=== PATIENT | male | born 1965 | race Two or more races ===

== ENCOUNTER 2021-09-09 14:00 | Outpatient (RCR) | payer MEDICAID, SELFPAY ==
--- NOTE | 2021-08-10 15:01 | MHC.PT.EP ---
[facility] [place] [facility] [place] [facility] [place] Office [address] Gladis Carty [address] [phone] F: [phone] F: [phone] F: [phone] F: [phone] Physical Therapy Plan of Care Date of Evaluation: Date of Surgery: n/a Diagnosis: B knee pain Assessment: Patient is a 56 year old male presenting to PT with complaints of pain in his B knees L>R. Pt reports onset of pain began 35 years ago initially due to insidious onset. He presents today with impairments in pain, hip strength, muscle length, and balance. Pt's current occupation is [employer] but currently is unable the last 2 weeks, with baseline physical activities including ambulation, stair negotiation, work, and squatting. Pt expresses prison goal of reducing pain and improving activity levels, and is motivated to work towards this in PT. Clinical presentation today is most consistent with signs and sx associated with chronic B knee pain with possible arthritis and pt will benefit from skilled PT to address the following problems and impairments noted upon evaluation: pain, hip strength, muscle length, and balance. These problems limit the patient with the following functional activities: ambulation, stair negotiation, work, and squatting. The prescribed treatment plan of care is medically necessary. Co-morbidities of anxiety, hx L knee surgery, and depression were identified and taken into considerations of plan of care. Pt was educated on HEP, role of PT, prognosis, POC. Frequency and Duration: The patient will be seen 2x week for 4 weeks Short Term Goals: Pt will demonstrate 5/5 MMT without reports of pain in 2 weeks. Pt will demonstrate improved quad muscle length as evidence by negative prone quad test B in 2 weeks. Pt will demonstrate improved balance as evidence by SLS x 20 sec B with min to no sway in 2 weeks for improved SL stabiltiy. Pt will demonstrate improved hip muscle strength by 1/3 MMT in 2 weeks for improved lumbopelvic stability. [facility]cf Goals: Pt will demonstrate ability to ambulate x 15 min with pain <3/10 in 4 weeks for improved access to the community. Pt will demonstrate ability to negotiate stairs with step over step pattern and min to no pain in 4 weeks for improved access to his home. Pt will demonstrate ability to squat with min to no pain in 4 weeks to improve ability to picker tender items off the floor. Treatment Plan: Modalities to reduce pain, spasms and effusion. Manual therapy to restore motion and function. Therapeutic exercise to improve strength and flexibility. Neuromuscular re-education for posture and balance. Therapeutic activities to return to functional activities of daily living. Electronically signed by: Francheska Marie, PT, DPT, ATC Please sign and return to therapist. Thank you for your referral.
--- NOTE | 2021-09-09 15:04 | MHC.PT.DC ---
[facility] [place] Office [place] Office [place] Office [address] Gladis Carty [address] [phone] F: [phone] F: [phone] F: [phone] F: [phone] Physical Therapy Discharge Report Diagnosis: B knee pain Date of Surgery: n/a Date of Evaluation: 08/10/21 Date of Discharge: 09/09/21 Treatments to Date: 9 Cancellations to Date: 0 No Shows to Date: 0 Discharge Status: Achieved Goals Improved Function Discharge Summary: Pt has made good improvements in strength, balance, and pain since beginning skilled PT. This has allowed him to meet the majority of his functional goals. He continues to have low level pain which increases only on stairs. He also continues to have impaired quad muscle length. Emphasized importance of continuing with HEP at home to maintain all gains since the start of PT as well as make further gains and pt verbalized good understanding. At this time max benefits of PT have been provided and skilled PT is no longer indicated at this time. Pt is in agreement with d/c today. Electronically signed by: Francheska Marie, PT, DPT, ATC Please sign and return to therapist. Thank you for your referral.
== END 2021-09-09 15:04 | disposition home or self-care (01) ==
LOC: HO.PT 14:00
PROVIDERS: PCP Nurse Practitioner; Visit Provider Nurse Practitioner
DX: M25.562 Pain in left knee (principal)
CPT/HCPCS: 97110; 97112; 97140; 97161

== ENCOUNTER → 2022-07-26 09:50 | Outpatient (REF) | payer MEDICAID, SELFPAY ==
--- NOTE | 2022-07-26 09:54 | CA_ITS ---
Transthoracic Echocardiogram Patient (Last, First, Middle): Derian Tian, Gender: Male Date of : 1965 Age: 56 Procedure Date: 07/26/2022 Procedure Type: Transthoracic Echocardiogram Location: OP Height: 175. cm Weight: 80. kg BSA: 1.96 m2 Heart Rate: 57 bpm BP: 105 / 70 mmHg Egg Processing Supervisor: RAMA Referring MD: Lesley Ordonez Symptoms: ORTHOPNEA R06.01 Study Quality: Good ECG Rhythm: Bradycardia Conclusions: - The left ventricular systolic function is mildly decreased. The calculated ejection fraction is 51% by biplane method. - Moderately increased right ventricular cavity size. - No obvious valvular pathology seen on this study. Findings Left Ventricle Normal left ventricular cavity size. There is normal left ventricular wall thickness. The left ventricular systolic function is mildly decreased. The calculated ejection fraction is 51% by biplane method. There is mild global hypokinesis. Diastolic function is normal for age. LV peak GLS -17.4%, but endocardial tracking suboptimal. Right Ventricle Moderately increased right ventricular cavity size. There is normal right ventricular systolic function. Atria Both atria are normal in size. Aortic Valve There is a normal trileaflet aortic valve. There is no aortic valve stenosis. There is no aortic valve regurgitation. Mitral Valve The mitral valve appears normal. There is no mitral valve regurgitation. There is no mitral valve stenosis. Pulmonic Valve The pulmonic valve is likely normal. Tricuspid Valve Normal tricuspid valve structure. There is trace tricuspid valve regurgitation. There is no evidence of pulmonary hypertension. Great Vessels The asc aorta is normal in size. Venous The inferior vena cava is normal in size and collapses greater than 50% with inspiration. Pericardium/Pleural There is no evidence of pericardial effusion. Prior Study Comparison No prior study available for comparison. Recommendations, Care & Conclusions No obvious valvular pathology seen on this study. Measurements 2D Linear Measurements IVSd: 0.95 0.6-0.9/0.6-1.0 cm LVIDd: 5.01 3.9-5.3/4.2-5.9 cm LVIDd Index: 2.56 2.4-3.2/2.2-3.1 cm/m2 LVIDs: 3.66 2.0-3.6 cm LVPWd: 0.89 0.7-1.1 cm LA Diam: 3.50 2.7-3.8/3.0-4.0 cm LAIDs Index: 1.79 1.5-2.3 cm/m2 LV Mass: 203.93 67-162/88-224 g LV Mass Index: 104.05 43-95/49-115 g/m2 LVOT Diam: 2.00 3.0+(-)1.3 cm 2D Systolic Function EF 4C: 50.70 >55% EF 2C: 49.70 >55% EF BiP: 51.10 >55% Mitral Valve MV Pk E: 0.63 MV PK A: 0.70 MV Decel Time: 262.00 E/A: 0.90 E'Lateral: 9.57 E'Medial: 9.25 E/E' Med: 6.80 E/E' Lat: 6.60 PHT: 77.00 MVA PHT: 2.86 Decel Sheridan: 2.40 Aortic Valve AoV Pk Jos: 1.39 AoV Mn Jos: 1.02 AoV VTI: 0.34 AoV Pk Grad: 8.00 Aov Mn Grad: 5.00 ERIN Cont.VTI: 2.32 LVOT LVOT Pk Jos: 1.09 LVOT Mn Jos: 0.77 LVOT VTI: 0.25 LVOT Pk Grad: 5.00 LVOT Mn Grad: 3.00 LVOT Diam: 2.00 LVOT Area: 3.14 Diastolic Function MV Pk E: 0.63 MV Pk A: 0.70 E/A: 0.90 E'Medial: 9.25 E/E' Med: 6.80 E' Laterial: 9.57 E/E' Lat: 6.60 Right Ventricle TAPSE (mm): 24.30 TVS' Jos: 9.25 Tricuspid Valve RA Press: 3.00 Great Vessels Aorta Sinus of Valsalva: 3.40 2.0-3.5 cm Ao Asc: 2.90 2.1-3.4 cm Pulmonary Valve PV Pk Jos: 1.03 Peak PV Grad: 4.00 Updated in Other Vendor System with Status of Final Eliot Gtz MD electronically signed on 07/26/2022 11:08:15 AM with status of Final
== END ==
LOC: HO.CARD 09:50
PROVIDERS: PCP Nurse Practitioner; Visit Provider Nurse Practitioner
DX: R06.01 Orthopnea (principal)
CPT/HCPCS: 93306; 93356

== ENCOUNTER → 2022-08-31 08:45 | Outpatient (BNVA) | payer MEDICAID, SELFPAY | PROVIDERS: PCP Nurse Practitioner; Visit Provider Internal Medicine Cardiovascular Disease | DX: R06.02 Shortness of breath (principal); I51.7 Cardiomegaly | CPT/HCPCS: 93005; 99202 ==

== ENCOUNTER → 2022-09-06 10:42 | Outpatient (REF) | payer MEDICAID, SELFPAY | LOC: HO.SL 10:42 | PROVIDERS: PCP Nurse Practitioner; Visit Provider Internal Medicine Cardiovascular Disease | DX: Z13.89 Encounter for screening for other disorder (principal) ==

== ENCOUNTER → 2022-09-12 08:52 | Outpatient (REF) | payer MEDICAID, SELFPAY ==
--- NOTE | 2022-09-12 08:55 | CA_ITS ---
Acquisition Time: 2022-09-12 09:05:07 Total Exercise Time: 00:10:44 Test Indications: R06.02 SHORTNESS OF BREATH Medications: see H Protocol: MALIK Max HR: 126 BPM 76% of Pred: 164 BPM Max BP: 156/080 mmHG Max Work Load: 12.9 METS Exercise stress test with exercise 10 min 44 sec of Malik protocol, acheiving 76% MPHR, 12.9 METs, with fatigue and request to stop ( reports bad knees and unable to jog), without anginal symptoms, without arrythmia, with normotensive response and blunted chronotropic response, without EKG changes at achieved workload. Ability to assess for ischemia limited by inability to achieve 85% MPHR. Test reviewed with Dr Mascorro Referred By: Luiz Mascorro Overread By: TOM ELIZABETH
== END ==
LOC: HO.CARD 08:52
PROVIDERS: PCP Nurse Practitioner; Visit Provider Internal Medicine Cardiovascular Disease
DX: R06.02 Shortness of breath (principal)
CPT/HCPCS: 93017

== ENCOUNTER 2022-10-21 15:29 | Outpatient (REF) | payer MEDICAID, SELFPAY ==
[2022-10-21 15:41] LABS: MANUAL DIFF FLAG NO
[2022-10-21 16:00] LABS: Basophils Percent Auto 0.5 % (0-2); Eosinophils Absolute Auto 0.2 X10*3/uL (0.0-0.4); Eosinophils Percent Auto 2.3 % (0-4); Hematocrit 40.6 % (42.0-52.0); Hemoglobin 13.5 g/dl (14.0-18.0); Imm Gran Abs Auto 0.02 X10*3/uL (0.00-0.03); Imm Gran Pct Auto 0.3 % (0.0-0.4); Lymphocytes Absolute Auto 2.3 X10*3/uL (1.2-4.9); Lymphocytes Percent Auto 30.5 % (20-40); Mean Corpuscular HGB Conc 33.3 g/dl (31.0-36.0); Mean Corpuscular Hemoglobin 29.9 pg (27.0-33.0); Mean Corpuscular Volume 89.8 fL (80.0-98.0); Mean Platelet Volume 8.7 fL (9.4-12.4); Monocytes Absolute Auto 0.7 X10*3/uL (0.1-1.2); Monocytes Percent Auto 8.6 % (2-11); Neutrophils Absolute Auto 4.4 x10*3/uL (2.0-8.3); Neutrophils Percent Auto 57.8 % (45-73); Platelet Count 287 X10*3/uL (160-400); Red Blood Count 4.52 X10*6/uL (4.60-5.80); Red Cell Distribution Width 13.2 % (11.0-16.0); White Blood Count 7.5 X10*3/uL (4.8-10.8)
[2022-10-21 16:25] LABS: Alanine Aminotransferase 15 U/L (0-40); Albumin Level 4.3 g/dL (3.5-5.0); Alkaline Phosphatase 93 U/L (39-117); Amylase 92 U/L (28-100); Anion Gap 10 (12-20); Aspartate Amino Transferase 16 U/L (5-37); Bilirubin Total 0.5 mg/dL (0.0-1.0); Blood Urea Nitrogen 18 mg/dL (9-16); Calcium 9.6 mg/dL (8.4-10.2); Carbon Dioxide 25 mmol/L (22-29); Chloride 102 mmol/L (96-108); Estimated Glomerular Filt Rate > 60; Glucose Random 98 mg/dL (60-115); Lactate Dehydrogenase 139 U/L (118-273); Lipase 41 U/L (8-78); Potassium 4.1 mmol/L (3.3-5.1); Sodium 133 mmol/L (135-145); Total Protein 6.8 g/dL (6.5-8.0)
[2022-10-25 15:23] LABS: H Pylori Breath Test Negative (Negative)
== END 2022-10-21 15:30 | disposition home or self-care (01) ==
LOC: HO.LAB 15:29
PROVIDERS: PCP Registered Nurse; Visit Provider Nurse Practitioner
DX: K85.90 Acute pancreatitis without necrosis or infection, unspecified (principal); K59.00 Constipation, unspecified; R11.0 Nausea; R10.10 Upper abdominal pain, unspecified
CPT/HCPCS: 36415; 80053; 82150; 83013; 83615; 83690; 85025; 99202

== ENCOUNTER → 2022-12-08 13:24 | Outpatient (BNVA) | payer MEDICAID, SELFPAY | PROVIDERS: PCP Registered Nurse; Visit Provider Urology | DX: N32.3 Diverticulum of bladder (principal); N40.1 Benign prostatic hyperplasia with lower urinary tract symptoms; N13.8 Other obstructive and reflux uropathy; Z12.5 Encounter for screening for malignant neoplasm of prostate | CPT/HCPCS: 51798; 99202 ==

== ENCOUNTER 2022-12-09 13:18 | Outpatient (REF) | payer MEDICAID, SELFPAY ==
[2022-12-09 17:06] LABS: Estimated Average Glucose 105 mg/dL; Hemoglobin A1c % 5.3 %
[2022-12-09 17:22] LABS: Amylase 87 U/L (28-100)
[2022-12-09 17:36] LABS: Alanine Aminotransferase 31 U/L (0-40); Albumin Level 4.1 g/dL (3.5-5.0); Alkaline Phosphatase 91 U/L (39-117); Anion Gap 9 (12-20); Aspartate Amino Transferase 21 U/L (5-37); Bilirubin Total 0.4 mg/dL (0.0-1.0); Blood Urea Nitrogen 16 mg/dL (9-16); Carbon Dioxide 30 mmol/L (22-29); Chloride 103 mmol/L (96-108); Cholesterol 154 mg/dL; Estimated Glomerular Filt Rate > 60; Glucose Random 82 mg/dL (60-115); HDL Cholesterol 29 mg/dL; LDL Cholesterol Calculated 88 mg/dl; Lipase 42 U/L (8-78); Potassium 4.4 mmol/L (3.3-5.1); Sodium 138 mmol/L (135-145); Total Protein 6.5 g/dL (6.5-8.0); Triglycerides 186 mg/dL
[2022-12-09 17:51] LABS: PSA,Total (Free>4and<10) 3.36 ng/mL (0.00-4.00)
[2022-12-10 09:04] LABS: HBc Num1 0.08 S/CO (0.00-0.79); HBsAGNum1 0.38 S/CO (0.00-0.99); Hepatitis B Core Antibody Nonreactive (Nonreactive); Hepatitis B Surface Antigen Negative (Negative); ~HepC Num1 0.06 S/CO (0.00-0.79); ~Hepatitis C Antibody Nonreactive (Nonreactive)
[2022-12-10 09:05] LABS: Hepatitis A Antibody IgG REACTIVE (Nonreactive); ~Hepatitis A Antibody IgG 11.12 S/CO (0.00-0.99)
[2022-12-10 09:39] LABS: HBS Num1 2.86 mIU/mL (0-7.99); ~Hepatitis B Surface Antibody NONREACTIVE (Nonreactive)
[2022-12-22 11:44] LABS: Phosphatidylethanol 16:0-18:1 None Detected
== END 2022-12-09 13:19 | disposition home or self-care (01) ==
LOC: HO.LAB 13:18
PROVIDERS: Absent Provider Urology; PCP Registered Nurse; Visit Provider Internal Medicine
DX: K85.90 Acute pancreatitis without necrosis or infection, unspecified (principal); R19.7 Diarrhea, unspecified; R10.10 Upper abdominal pain, unspecified; F10.11 Alcohol abuse, in remission; F19.11 Other psychoactive substance abuse, in remission; N40.1 Benign prostatic hyperplasia with lower urinary tract symptoms; Z86.19 Personal history of other infectious and parasitic diseases; Z12.5 Encounter for screening for malignant neoplasm of prostate
CPT/HCPCS: 36415; 80053; 80061; 80321; 82150; 83036; 83690; 84153; 86704; 86706; 86708; 86803; 87340; 99212

== ENCOUNTER 2022-12-10 11:58 | Outpatient (REF) | payer MEDICAID, SELFPAY | END 2022-12-10 11:59 | disposition home or self-care (01) | LOC: HO.LNP 11:58 | PROVIDERS: Visit Provider Internal Medicine | DX: Z13.89 Encounter for screening for other disorder (principal) | CPT/HCPCS: 82656; 82705; 87338 ==

== ENCOUNTER 2022-12-14 12:36 | Outpatient (REF) | payer MEDICAID, SELFPAY ==
[2022-12-18 15:53] LABS: Fecal Fat Qualitative Abnormal (Normal)
[2022-12-22 16:34] LABS: Pancreatic Elastase-1 315 mcg/g
== END 2022-12-14 12:37 | disposition home or self-care (01) ==
LOC: HO.LNP 12:36
PROVIDERS: Visit Provider Internal Medicine
DX: R19.7 Diarrhea, unspecified (principal); Z86.19 Personal history of other infectious and parasitic diseases
CPT/HCPCS: 82656; 82705; 87338

== ENCOUNTER 2022-12-27 10:57 | Outpatient (REF) | payer MEDICAID, SELFPAY ==
--- NOTE | ~2022-12-27 | MR_ITS ---
EXAMINATION: MR ABDOMEN WITHOUT AND WITH CONTRAST CLINICAL INFORMATION: Acute pancreatitis COMPARISON: Previous abdominal ultrasound and CT of the abdomen and pelvis August 2022 TECHNIQUE: MR abdomen was performed without and with use of 10 mL intravenous Gadavist gadolinium contrast. Postcontrast images are performed in multiphase dynamic sequences. Imaging was performed in 3 planes. MRCP sequences were also performed. FINDINGS: LUNG BASES: The visualized lung bases are unremarkable. LIVER, GALLBLADDER, AND BILIARY TREE: The liver is normal in size and contour. There is mild signal loss in the liver on out of phase sequences suggestive of fatty infiltration. There is a small 4 mm cyst in the peripheral anterior segment of the right lobe of the liver. No other focal liver lesion. The gallbladder is contracted. No gallstones are seen. Intrahepatic extrahepatic bile ducts are normal in caliber. The common bile duct measures 5 mm. No common bile duct stone is seen. PANCREAS: There are clustered small cysts seen in the uncinate process of the head of the pancreas. The largest measures 7 x 8 mm. There are several smaller isolated cysts measuring 2 to 3 mm in the body and tail the pancreas. These may represent dilated pancreatic duct radicles. The main pancreatic duct does not appear dilated measuring 3 mm. The pancreas is otherwise normal in signal. The pancreas enhances normally. No pancreatic mass is seen. The peripancreatic fat is normal. SPLEEN: Small cyst in the inferior spleen. The spleen is otherwise unremarkable. ADRENAL GLANDS: There is a 1.8 cm left adrenal lesion. This loses signal on out of phase sequences suggestive of a benign lipid rich adenoma. Right adrenal gland is normal. KIDNEYS AND URETERS: Small left renal cysts. No imaging follow-up needed. Kidneys are otherwise normal. There is a large cystic structure in the pelvis. This is seen on coronal and sagittal T2 sequences only. This likely represents a distended bladder and large right-sided bladder diverticulum. GASTROINTESTINAL TRACT: No bowel obstruction. No ascites or fluid collection. ABDOMINAL WALL: No significant hernia is appreciated. LYMPH NODES: No lymphadenopathy. VASCULAR: Unremarkable. The splenic vein and portal vein are patent. OSSEOUS STRUCTURES: Marrow signal normal. Degenerative changes of the spine. MR/MR abdomen wo/w con IMPRESSION: Small clustered cysts in the uncinate process of the head of the pancreas largest measuring 7 x 8 mm. There are additional isolated small cysts in the body and tail the pancreas largest measuring 2 to 3 mm. These may represent dilated pancreatic duct radicles. Pancreas is otherwise normal. The main pancreatic duct is otherwise normal. Mild fatty infiltration of the liver. Small liver, spleen and left renal cyst. Probable distended gallbladder and large right-sided bladder diverticulum.
== END 2022-12-27 10:58 | disposition home or self-care (01) ==
LOC: HO.MRI 10:57
PROVIDERS: Visit Provider Internal Medicine
DX: K85.90 Acute pancreatitis without necrosis or infection, unspecified (principal)
CPT/HCPCS: 74183; A9585

== ENCOUNTER → 2023-01-04 14:56 | Outpatient (BNVA) | payer MEDICAID, SELFPAY | PROVIDERS: PCP Registered Nurse; Visit Provider Internal Medicine | DX: R10.10 Upper abdominal pain, unspecified (principal); R19.7 Diarrhea, unspecified; K85.90 Acute pancreatitis without necrosis or infection, unspecified; K86.2 Cyst of pancreas; K62.5 Hemorrhage of anus and rectum; D64.9 Anemia, unspecified; F10.11 Alcohol abuse, in remission | CPT/HCPCS: 99212 ==

== ENCOUNTER 2023-02-02 14:17 | Day surgery (SDC) | payer MEDICAID, SELFPAY ==
[2023-01-27 15:26] VITALS: BMI 28.4
--- NOTE | 2023-02-01 14:39 | HO.ANESPROP2 ---
Documented by User: Sapna Paige NP 02/08/23 13:17 HPI - Anesthesia Eval Consult details Narrative: 57yo M for Upper Endoscopy and Colonoscopy [facility] Active Problems Active Problems: All Active Problems (Updated 01/27/23 @ 15:18 by Ashlie Hutchins, HUBERT) Cardiomegaly (Acute) History of alcohol abuse (Acute) Orthopnea (Acute) Recurrent acute pancreatitis (Acute) Depression with anxiety (Acute) Bilateral knee pain (Acute) Constipation (Acute) Nausea (Acute) Upper abdominal pain (Acute) Acquired bladder diverticulum (Acute) Voiding dysfunction (Acute) BPH loc w urin obs/LUTS (Acute) Screening PSA (prostate specific antigen) (Acute) Recurrent acute pancreatitis (Acute) History of Helicobacter pylori infection (Acute) Diarrhea (Acute) Colon cancer screening (Acute) 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) Pancreatic cyst (Acute) Rectal bleeding (Acute) Anemia (Acute) Past Medical History Medical History Anemia BPH (benign prostatic hyperplasia) Depression with anxiety Pancreatitis Substance abuse in remission Family History Family History Maternal Grandmother Diabetes Hypertension Surgical History Surgical History H/O skin graft History of esophagogastroduodenoscopy (EGD) History of reconstruction of anterior cruciate ligament tear Social History Social History Alcohol intake: never Patient Tobacco Use Status: Former Tobacco user Meds Allergies Allergy/AdvReac Type Severity Reaction Status Date / Time seafood AdvReac Severe Swelling Verified 02/03/23 14:20 Home Medications Medication Instructions Recorded Confirmed Last Taken Type epinephrine 0.3 mg/0.3 mL IM ONCE PRN anaphylaxis 08/31/22 12/08/22 Unknown History injection, auto-injector hydroxyzine HCl 50 mg tablet 100 mg PO BEDTIME insomnia 08/31/22 12/08/22 Unknown History cholecalciferol (vitamin D3) 50 50 mcg PO 01/04/23 Unknown History mcg (2,000 unit) capsule Exam Exam Date and Time: February 01, 2023 1439 Height,Weight and Vital Signs: Height 5 ft 10 in Weight 89.811 kg Pertinent Lab Results Pertinent Lab Results: Laboratory Tests 10/21/22 12/09/22 15:39 16:20 WBC 7.5 Hgb 13.5 L Hct 40.6 L Plt Count 287 Sodium 138 Potassium 4.4 Chloride 103 Carbon Dioxide 30 H BUN 16 Creatinine 1.16 Narrative Narrative: ECHO 07/2022 Conclusions: - The left ventricular systolic function is mildly decreased.? ? The calculated ejection fraction is 51% by biplane method. ? ? ? - Moderately increased right ventricular cavity size.? - No obvious valvular pathology seen on this study.? ? ? EKG 08/2022 normal sinus rhythm with Q-waves in high lateral leads ? Stress 08/2022 Protocol: MORGAN ? Max HR: 126 BPM? 76% of? Pred: 164 BPM Max BP: 156/080 mmHG Max Work Load: 12.9 METS ? Exercise stress test with exercise 10 min 44 sec of Morgan protocol, acheiving ?76% MPHR, 12.9 METs, with fatigue and request to stop ( reports bad knees and ?unable to jog), without anginal symptoms, without arrythmia, with normotensive ?response and blunted chronotropic response, without EKG changes at achieved ?workload. Ability to assess for ischemia limited by inability to achieve 85% ?MPHR. Test reviewed with Dr Mascorro Assessment and Plan Assessment Anesthesia Assessment: Chart Reviewed Documented by User: Godwin Kovacs MD 02/09/23 15:34 PMF Past Medical History Medical History Anemia BPH (benign prostatic hyperplasia) Depression with anxiety Pancreatitis Substance abuse in remission Family History Family History Maternal Grandmother Diabetes Hypertension Family history of problems with anesthesia: No Surgical History Surgical History H/O skin graft History of esophagogastroduodenoscopy (EGD) History of reconstruction of anterior cruciate ligament tear History of Problems with Anesthesia: No Social History Social History Alcohol intake: never Patient Tobacco Use Status: Former Tobacco user Meds Allergies Allergy/AdvReac Type Severity Reaction Status Date / Time seafood AdvReac Severe Swelling Verified 02/03/23 14:20 Home Medications Medication Instructions Recorded Confirmed Last Taken Type epinephrine 0.3 mg/0.3 mL IM ONCE PRN anaphylaxis 08/31/22 12/08/22 Unknown History injection, auto-injector hydroxyzine HCl 50 mg tablet 100 mg PO BEDTIME insomnia 08/31/22 12/08/22 Unknown History cholecalciferol (vitamin D3) 50 50 mcg PO 01/04/23 Unknown History mcg (2,000 unit) capsule Exam Airway Mallampati Class: II TM Dist: >3cm Neck ROM: Full Loose/Missing/Broken Teeth: Yes Assessment and Plan Assessment Anesthesia Assessment: Anesthesia Plan Discussed Final Anesthetic Review Family History of Problems with Anesthesia: No History of Problems with Anesthesia: No NPO: Yes ASA Class: III Final Preanesthetic Review: No Changes in Pt Med Stat, Meds/Allgs Chart Reviewed, Consent Obtained/Reviewed and Anes Risks/Benef Reviewed Patient Risk: Intermediate Procedure Risk: Low Anesthetic Plan Anesthetic Plan: MAC: Disposition: Standard PACU
[2023-02-02 14:23] VITALS: BMI 25.9
[2023-02-02 14:29] VITALS: BP 113/68; PULSE 72; RESP 16; TEMP 36.6; O2SAT 95
[2023-02-02] MEDS: Lactated Ringers 1,000 ML 100 ML IVCONT (14:39)
--- NOTE | 2023-02-02 14:39 | MHC.SHP ---
Pre-Procedural Eval Section A Date of Service: 02/02/23 The History & Physical has been completed within 30 days and I have reviewed it.: Yes Section B Chief Complaint: acute pancreastitis,diarrhea,screening,pain Allergies: Allergies Allergy/AdvReac Type Severity Reaction Status Date / Time seafood AdvReac Severe Swelling Verified 01/04/23 15:02 Plan Diagnosis/Plan: Unchanged I have reviewed the history and physical and performed a pertinent physical examination on my patient. No changes have occurred unless specified. Time Spent With Patient Time: Total time managing care of this patient today ____ minutes.
--- NOTE | 2023-02-02 14:54 | PC.NURSE ---
report given to nehal koch
[2023-02-02 14:56] LABS: Amphetamine Screen Urine Not Detected (Not Detect); Barbiturates, Urine Not Detected (Not Detect); Benzodiazepines Screen Urine Not Detected (Not Detect); Cannabinoid Screen Urine POSITIVE (Not Detect); Cocaine Screen Urine Not Detected (Not Detect); Fentanyl, urine Not Detected (Not Detect); Opiate Screen Urine Not Detected (Not Detect); Phencyclidine Screen Urine Not Detected (Not Detect)
--- NOTE | 2023-02-02 15:59 | P.OP_ITS ---
Operative Note Operative Note Date of Service: 02/02/23 Narrative: Procedure:?Esophagogastroduodenoscopy and Colonoscopy Indication:?Anemia, diarrhea, rectal bleeding Endoscopist:?Myrna Wright MD Anesthesia Provider:?Dr Godwin Kovacs Anesthesia type:?MAC Instrument:?Olympus GIF-H190, PCF-H190L EGD Procedure:?? The procedure, indications, preparation and potential complications were reviewed with the patient, who indicated understanding and gave written informed consent to proceed. A physical exam was performed. The endoscope was introduced through the mouth, and advanced to the second part of the duodenum. The mucosa was carefully examined on slow withdrawal of the endoscope. The patient tolerated the procedure well. There were no immediate complications.? ? EGD Findings:? * Esophagus:? The Z line was at 42 cm. Small erosion/ulceration noted at the GEJ. Cold forceps biopsies were taken from the lower esophagus. * Stomach:?Normal mucosa was noted in the stomach. Random cold forceps biopsies were taken to rule out H pylori. * Duodenum:? Erythema and small erosions were seen in the duodenal bulb. Cold forceps biopsies were taken from the duodenal bulb and 2nd portion of the duodenum to rule out celiac sprue. Colonoscopy Procedure:? The patient was then turned for the colonoscopy. A digital rectal exam was performed which was normal.? A distal attachment cap was affixed to the tip of t he scope and the colonoscope was then inserted through the anus and advanced through the colon to the cecum at 85 cm and terminal ileum. The appendiceal orifice and ileocecal valve was identified.? Mucosa was carefully examined under high definition white light as the instrument was slowly withdrawn in a retrograde panoramic fashion.? Ascending colon was intubated twice.? Retroflexion was performed in rectum. The procedure was not difficult. There were no immediate obvious complications. The quality of the prep was BBPS: 2+3+3 = adequate Withdrawal time 12 minutes. Limitations: No limitations Colonoscopy Findings: Mucosa:? Normal colon and terminal ileum mucosa. Random cold forceps biopsies were taken from right and left side of the colon to rule out microscopic colitis. Protruding lesions: * Two sessile polyp of size 2-3 mm were seen in the sigmoid colon. Cold forceps polypectomy was performed. The polyps were completely removed and retrieved. * One sessile polyp of size 4 mm was seen in the rectum. Cold forceps polypectomy was performed. The polyp was completely removed and retrieved. * Large internal hemorrhoids with stigmata of recent bleeding. Impression:? * Grade B esophagitis (biopsy) * Normal stomach (biopsy) * Duodenitis (biopsy) * Normal colon mucosa (biopsy) * Total of 3 polyps removed from the sigmoid colon and rectum as above. * Internal hemorrhoids Recommendations: * Await path results.? * Start PPI therapy for esophagitis and duodenitis. * If H pylori is positive, patient will be prescribed eradication therapy. * If biopsies confirm microscopic colitis, will review indication for budesonide. * Repeat colonoscopy in 3-5 years if all polyps are adenoma. Following was reviewed with the patient and relevant handouts were provided.
[2023-02-02 16:10] VITALS: BP 95/72; PULSE 62; RESP 12; TEMP 36.6; O2SAT 99
[2023-02-02 16:25] VITALS: BP 103/61; PULSE 56; RESP 12; O2SAT 96
[2023-02-02 16:40] VITALS: BP 107/65; PULSE 60; RESP 16; O2SAT 97
[2023-02-02 16:55] VITALS: BP 112/62; PULSE 61; RESP 16; TEMP 36.7; O2SAT 96
== END 2023-02-02 17:26 | disposition home or self-care (01) ==
PROVIDERS: Nurse Practitioner; PCP Registered Nurse; Visit Provider Internal Medicine
PROC: (CPT 45380; principal; 2023-02-02 13:20)
DX: K62.5 Hemorrhage of anus and rectum (principal); D64.9 Anemia, unspecified; R19.7 Diarrhea, unspecified; K63.5 Polyp of colon; K62.1 Rectal polyp; K64.8 Other hemorrhoids; K85.90 Acute pancreatitis without necrosis or infection, unspecified; K86.2 Cyst of pancreas; R10.10 Upper abdominal pain, unspecified; K29.80 Duodenitis without bleeding; K20.80 Other esophagitis without bleeding; N40.0 Benign prostatic hyperplasia without lower urinary tract symptoms; F41.8 Other specified anxiety disorders; F10.11 Alcohol abuse, in remission; Z79.899 Other long term (current) drug therapy
CPT/HCPCS: 45380; 43239; 80307; 88305; 88342; J2250

== ENCOUNTER → 2023-02-03 14:08 | Outpatient (BNVA) | payer MEDICAID, SELFPAY | PROVIDERS: PCP Registered Nurse; Visit Provider Internal Medicine | DX: K85.90 Acute pancreatitis without necrosis or infection, unspecified (principal); K86.2 Cyst of pancreas; K62.5 Hemorrhage of anus and rectum; K20.90 Esophagitis, unspecified without bleeding; K29.80 Duodenitis without bleeding; D64.9 Anemia, unspecified; F10.11 Alcohol abuse, in remission; R19.7 Diarrhea, unspecified; R10.10 Upper abdominal pain, unspecified | CPT/HCPCS: 99212 ==

== ENCOUNTER 2023-06-20 10:04 | Outpatient (REF) | payer MEDICAID, SELFPAY ==
[2023-06-20 11:50] LABS: Hematocrit 41.5 % (42.0-52.0); Hemoglobin 13.9 g/dl (14.0-18.0); Mean Corpuscular HGB Conc 33.5 g/dl (31.0-36.0); Mean Corpuscular Hemoglobin 30.3 pg (27.0-33.0); Mean Corpuscular Volume 90.6 fL (80.0-98.0); Mean Platelet Volume 8.6 fL (9.4-12.4); Platelet Count 295 X10*3/uL (160-400); Red Blood Count 4.58 X10*6/uL (4.60-5.80); Red Cell Distribution Width 12.8 % (11.0-16.0); White Blood Count 5.6 X10*3/uL (4.8-10.8)
[2023-06-20 13:03] LABS: Iron 159 mcg/dL (45-160); Magnesium 2.1 mg/dL (1.6-2.6); Percent Iron Saturation 48 % (15-50); Total Iron Binding Capacity 332 mcg/dL (228-428); Unsaturated Iron Binding 173 ug/dL
[2023-06-20 13:11] LABS: Ferritin 44 ng/mL (20-250); Vitamin D 25-OH Total 51.6 ng/mL (>30)
[2023-06-20 13:17] LABS: Folate 6.9 ng/mL (> or = 4.0); Vitamin B12 357 pg/mL (200-900)
[2023-06-23 00:58] LABS: Zinc 72 mcg/dL (60-130)
[2023-06-23 02:12] LABS: Copper, serum 69 mcg/dL (70-175); Selenium, Serum 126 mcg/L (63-160)
== END 2023-06-20 10:05 | disposition home or self-care (01) ==
LOC: HO.LAB 10:04
PROVIDERS: PCP Registered Nurse; Visit Provider Internal Medicine
DX: R10.10 Upper abdominal pain, unspecified (principal); K85.90 Acute pancreatitis without necrosis or infection, unspecified; K86.2 Cyst of pancreas; R19.7 Diarrhea, unspecified; F10.11 Alcohol abuse, in remission; K62.5 Hemorrhage of anus and rectum; D64.9 Anemia, unspecified; K20.90 Esophagitis, unspecified without bleeding; K29.80 Duodenitis without bleeding
CPT/HCPCS: 36415; 82306; 82330; 82525; 82607; 82728; 82746; 83540; 83735; 84255; 84590; 84630; 85027; 85610; 99212

== ENCOUNTER 2023-06-20 10:04 | Outpatient (AMB) | payer MEDICAID, SELFPAY ==
[2023-06-20 10:19] VITALS: BP 125/80; PULSE 61; BMI 27.7
--- NOTE | 2023-06-20 10:19 | A.OFFVIS_ITS ---
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 12/09/22: History was obtained patient, who states that he had his 1st episode of acute pancreatitis in 2014, followed by 2nd episode 8 months later. At that time, this was attributed to heavy alcohol use. Was drinking 6-7 drinks every day x years. He has since then quit, and has not had recurrence of pancreatitis until just recently in August 2022. Was admitted to [facility] for almost [address] scan showing pancreatitis scanned in chart. Unclear etiology, thinks it was may be from eating too many eggs. Has not had alcohol for 8 years. Has gallbladder in Situ, but does not recall being told he had stones or sludge. Does not smoke tobacco, does smoke marijuana. 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 No family history of pancreatitis or pancreatic cancer. Currently, main complaint is postprandial abdominal pain and burning sensation with nausea, feeling of bloating and intermittent diarrhea. He states that his diarrhea is better since he started psyllium fiber, but continues to have postprandial abdominal discomfort with nausea. Describes abdominal discomfort as burning pain in the center of his abdomen that lasts at least a few hours. He is not on any PPI. Does have prior history of H pylori infection, and recalls getting antibiotics, but is not sure whether he had a repeat breath test. Does not take any NSAIDs. Currently not on any PPI. 01/04/23: Main complain of abdominal discomfort and bloating is unchanged. This is mostly postprandial as mentioned before. Was also recent testing and MRI discussed with the patient. Although, no signs of pancreatic atrophy or calcification noted on MRI, fecal fat is elevated and patient may have some degree of pancreatic insufficiency. In addition, he also reports rectal bleeding, which is specially worse in the past 2 days. Notices blood on wiping. No pain on passing bowel movements. Patient reports he has never had a colonoscopy done. Labs also show anemia. 02/02/23 EGD/colo: Impression:? * Grade B esophagitis (biopsy) * Normal stomach (biopsy) * Duodenitis (biopsy) * Normal colon mucosa (biopsy) * Total of 3 polyps removed from the sigmoid colon and rectum as above. * Internal hemorrhoids Path: A.? Duodenum, biopsy:? Duodenal mucosa with preserved villi and no specific change. B.? Stomach, random, biopsy:? Gastric antral mucosa with mild reactive changes and minimal chronic inactive gastritis, and gastric body mucosa with focal minimal inactive gastritis; negative for H pylori, intestinal metaplasia and dysplasia.? C.? Esophagus, lower, biopsy:? Squamocolumnar mucosa with hyperplastic changes and mild chronic inflammation; negative for intestinal metaplasia and dysplasia. D.? Colon, right, biopsy:? Colonic mucosa with lymphoid aggregates and no specific change; no evidence of microscopic colitis. E.? Colon, left, biopsy:? Colonic mucosa with lymphoid aggregates and no specific change; no evidence of microscopic colitis.? F.? Colon, sigmoid, polyps:? Hyperplastic polyps, two. G.? Colon, rectal polyp:? Hyperplastic polyp.? 02/03/23: Reports improvement in abdominal pain, nausea and vomiting with the Creon. Reports has to take 1 extra capsule than what is currently being prescribed for full effect. Diarrhea is better 2, thinks fiber supplementation help more than the crown in improving the diarrhea. It has also helped with the rectal bleeding and hemorrhoids. Was not able to use the hydrocortisone for rectal cream. Findings from EGD and colonoscopy reviewed with the patient. Path pending. Suspect rectal bleeding and anemia most likely secondary to the large internal hemorrhoids which did have stigmata of recent bleeding on the exam as well. 06/20/23: Returned from [place]. Reports good energy levels - biking 8 miles on weekends. Abd pain completely resolved with starting Creon but since increasing the dose recently, reports increased bloating and distention. Diarrhea is decreased in frequency as well. Rectal bleeding has resolved now that he is not going as frequently. Labs pending from January visit, and reminded to get those done today to review anemia as well as any nutrient deficiency due to chronic panc - if any. [facility] Medical History Anemia BPH (benign prostatic hyperplasia) Depression with anxiety Pancreatitis Substance abuse in remission Surgical History H/O skin graft History of esophagogastroduodenoscopy (EGD) History of reconstruction of anterior cruciate ligament tear Family History Maternal Grandmother Diabetes Hypertension Social History Alcohol intake: never Patient Tobacco Use Status: Former Tobacco user Review of Systems Const All systems reviewed & are unremarkable except as noted in HPI and below Physical Exam Vital Signs: Last Vital Signs Pulse 61 06/20/23 10:19 BP 125/80 06/20/23 10:19 BMI result Body Mass Index 27.7 Gen appear: No acute distress, well nourished HEENT: no icterus, no cervical lymphadenopathy Chest: No overt resp distress CVS: S1/S2, regular Abd: soft, nontender, nondistended, small 2 cm subdermal nodule in RUQ Psych: Stable affect, answering questions appropriately Neuro: A/Ox3 noted to move all extremities spontaneously Ext: no peripheral edema Assessment & Plan Assessment & Plan (1) Upper abdominal pain: Code(s): R10.10 - Upper abdominal pain, unspecified (2) Recurrent acute pancreatitis: Code(s): K85.90 - Acute pancreatitis without necrosis or infection, unspecified (3) Pancreatic cyst: Code(s): K86.2 - Cyst of pancreas (4) Diarrhea: Code(s): R19.7 - Diarrhea, unspecified (5) History of alcohol abuse: Code(s): F10.11 - Alcohol abuse, in remission Plan: Overall doing well. Post prandial abd pain completely resolved with addition of Creon. Did review dosing and advised to reduce to 5 caps with meals and 3 caps with snacks to see if that helps with bloating and distention. Plan: -Creon 120,000 units (5 caps) to be taken with meals and 81836 units (3 caps) to be taken with snack -Reminder in place for repeat MRI next year to surveil the pancreatic cyst\ -since he has demonstrated some degree of pancreatic insufficiency, we will also check micronutrients including iron, folate, B12, vitamin-D, micronutrients. Also ties in with work up for his anemia see below. (6) Rectal bleeding: Code(s): K62.5 - Hemorrhage of anus and rectum (7) Anemia: Code(s): D64.9 - Anemia, unspecified Plan: REctal bleeding has resolved with improvement in diarrhea on PERT. Overdue for anemia monitoring as missed his lab work at last appt. Recommendations: - CBC, iron panel ordered - Cont fiber supplement - Sitz bath PRN - Avoid constipation and straining - Avoid wiping aggressively, can use water/bidet or wet wipe (8) Esophagitis: Code(s): K20.90 - Esophagitis, unspecified without bleeding (9) Duodenitis: Code(s): K29.80 - Duodenitis without bleeding Plan: As noted on upper endoscopy earlier this year. Was likely contributing to his anemia as well. -Decrease omeprazole to 20 mg once daily -Will likely need this indefinitely due to hx of erosive esophagitis and gastritis in absence of NSAID use and H pylori. Plan Follow-up in 3 month Orders: Orders Vitamin B12 and Folate Today K85.90 - Acute pancreatitis without necrosis or infection, unspecified Calcium, Ionized Today K85.90 - Acute pancreatitis without necrosis or infection, unspecified Copper, serum Today K85.90 - Acute pancreatitis without necrosis or infection, unspecified Ferritin Today K85.90 - Acute pancreatitis without necrosis or infection, unspecified IRON PROFILE Today K85.90 - Acute pancreatitis without necrosis or infection, unspecified Magnesium Today K85.90 - Acute pancreatitis without necrosis or infection, unspecified Selenium, Serum Today K85.90 - Acute pancreatitis without necrosis or infection, unspecified Vitamin A Today K85.90 - Acute pancreatitis without necrosis or infection, unsp ecified Vitamin D 25-OH Total Today K85.90 - Acute pancreatitis without necrosis or infection, unspecified Zinc Today K85.90 - Acute pancreatitis without necrosis or infection, unspecified Prothrombin Time INR Today K85.90 - Acute pancreatitis without necrosis or infection, unspecified Complete Blood Count no Diff Today K85.90 - Acute pancreatitis without necrosis or infection, unspecified Medications: Changed From [id number] 24,000-76,000 -120,000 unit (Creon) 3 capsule with meals and 2 capsule with snack orally; administer with meals and/or snacks 30 days 400 caps 1RF To [id number]-nuugwgw 24,000-76,000 -120,000 unit (Creon) 4-5 capsule with meals and 3 capsule with snack orally; administer with meals and/or snacks 30 days 570 caps 3RF From omeprazole 20 mg PO BID 90 days 180 caps 0RF To omeprazole 20 mg PO DAILY 90 days 90 caps 3RF Refilled omeprazole 20 mg PO DAILY 90 days 90 caps 3RF Coding Level of Care Code Est Pt Level 5 (34428) Diagnoses Upper abdominal pain R10.10 Recurrent acute pancreatitis K85.90 Pancreatic cyst K86.2 Diarrhea R19.7 History of alcohol abuse F10.11 Rectal bleeding K62.5 Anemia D64.9 Esophagitis K20.90 Duodenitis K29.80
== END 2023-06-20 10:51 | disposition home or self-care (01) ==
PROVIDERS: Visit Provider Internal Medicine
DX: K85.90 Acute pancreatitis without necrosis or infection, unspecified (principal); K86.2 Cyst of pancreas; R19.7 Diarrhea, unspecified; K62.5 Hemorrhage of anus and rectum; D64.9 Anemia, unspecified; K20.90 Esophagitis, unspecified without bleeding; K29.80 Duodenitis without bleeding
CPT/HCPCS: 99214

== ENCOUNTER 2023-10-03 11:05 | Outpatient (AMB) | payer MEDICAID, SELFPAY ==
--- NOTE | 2023-10-03 11:07 | MHC.OFFVIS ---
Intake Intake Visit Reasons: 3 month follow up Intake Note: Derian presents as a telehealth as a 3 month follow up. CC: Allergies seafood Adverse Reaction (Severe, Verified 10/03/23 11:07) Swelling HPI HPI Comments History of Present Illness Details This is a 57-year-old [place] gentleman with past medical history of recurrent acute pancreatitis, who is here for follow-up. 12/09/22: History was obtained patient, who states that he had his 1st episode of acute pancreatitis in 2014, followed by 2nd episode 8 months later. At that time, this was attributed to heavy alcohol use. Was drinking 6-7 drinks every day x years. He has since then quit, and has not had recurrence of pancreatitis until just recently in August 2022. Was admitted to [facility] for almost [address] scan showing pancreatitis scanned in chart. Unclear etiology, thinks it was may be from eating too many eggs. Has not had alcohol for 8 years. Has gallbladder in Situ, but does not recall being told he had stones or sludge. Does not smoke tobacco, does smoke marijuana. 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 No family history of pancreatitis or pancreatic cancer. Currently, main complaint is postprandial abdominal pain and burning sensation with nausea, feeling of bloating and intermittent diarrhea. He states that his diarrhea is better since he started psyllium fiber, but continues to have postprandial abdominal discomfort with nausea. Describes abdominal discomfort as burning pain in the center of his abdomen that lasts at least a few hours. He is not on any PPI. Does have prior history of H pylori infection, and recalls getting antibiotics, but is not sure whether he had a repeat breath test. Does not take any NSAIDs. Currently not on any PPI. 01/04/23: Main complain of abdominal discomfort and bloating is unchanged. This is mostly postprandial as mentioned before. Was also recent testing and MRI discussed with the patient. Although, no signs of pancreatic atrophy or calcification noted on MRI, fecal fat is elevated and patient may have some degree of pancreatic insufficiency. In addition, he also reports rectal bleeding, which is specially worse in the past 2 days. Notices blood on wiping. No pain on passing bowel movements. Patient reports he has never had a colonoscopy done. Labs also show anemia. 02/02/23 EGD/colo: Impression:? Grade B esophagitis (biopsy) Normal stomach (biopsy) Duodenitis (biopsy) Normal colon mucosa (biopsy) Total of 3 polyps removed from the sigmoid colon and rectum as above. Internal hemorrhoids Path: A.? Duodenum, biopsy:? Duodenal mucosa with preserved villi and no specific change. B.? Stomach, random, biopsy:? Gastric antral mucosa with mild reactive changes and minimal chronic inactive gastritis, and gastric body mucosa with focal minimal inactive gastritis; negative for H pylori, intestinal metaplasia and dysplasia.? C.? Esophagus, lower, biopsy:? Squamocolumnar mucosa with hyperplastic changes and mild chronic inflammation; negative for intestinal metaplasia and dysplasia. D.? Colon, right, biopsy:? Colonic mucosa with lymphoid aggregates and no specific change; no evidence of microscopic colitis. E.? Colon, left, biopsy:? Colonic mucosa with lymphoid aggregates and no specific change; no evidence of microscopic colitis.? F.? Colon, sigmoid, polyps:? Hyperplastic polyps, two. G.? Colon, rectal polyp:? Hyperplastic polyp.? 02/03/23: Reports improvement in abdominal pain, nausea and vomiting with the Creon. Reports has to take 1 extra capsule than what is currently being prescribed for full effect. Diarrhea is better 2, thinks fiber supplementation help more than the creon in improving the diarrhea. It has also helped with the rectal bleeding and hemorrhoids. Was not able to use the hydrocortisone for rectal cream. Findings from EGD and colonoscopy reviewed with the patient. Path pending. Suspect rectal bleeding and anemia most likely secondary to the large internal hemorrhoids which did have stigmata of recent bleeding on the exam as well. 06/20/23: Returned from [place]. Reports good energy levels - biking 8 miles on weekends. Abd pain completely resolved with starting Creon but since increasing the dose recently, reports increased bloating and distention. Diarrhea is decreased in frequency as well. Rectal bleeding has resolved now that he is not going as frequently. Labs pending from January visit, and reminded to get those done today to review anemia as well as any nutrient deficiency due to chronic panc - if any. 10/03/23: Here as a televisit due to URI. No acute gastrointestinal complaints. No abd pain, N,V. No diarrhea as long as he takes creon and fiber regularly. Rectal bleeding has also resolved. Labs reviewed from last visit. No clinically significant nutritional deficiencies noted. COUNTS INCLUDE 234 BEDS AT THE [facility] Medical History Pancreatitis Anemia Depression with anxiety BPH (benign prostatic hyperplasia) Substance abuse in remission Surgical History History of esophagogastroduodenoscopy (EGD) H/O skin graft History of reconstruction of anterior cruciate ligament tear Family History Maternal Grandmother Diabetes Hypertension Social History Alcohol intake: never Patient Tobacco Use Status: Former Tobacco user Review of Systems Const All systems reviewed & are unremarkable except as noted in HPI and below Physical Exam Vital Signs: video visit: NAD, nontoxic appearing able to speak in full sentences Assessment & Plan Assessment & Plan (1) Upper abdominal pain: Code(s): R10.10 - Upper abdominal pain, unspecified (2) Recurrent acute pancreatitis: Code(s): K85.90 - Acute pancreatitis without necrosis or infection, unspecified (3) Pancreatic cyst: Code(s): K86.2 - Cyst of pancreas (4) Diarrhea: Code(s): R19.7 - Diarrhea, unspecified (5) History of alcohol abuse: Code(s): F10.11 - Alcohol abuse, in remission Plan: Overall doing well. No gastrointestinal sx. No change in management. Plan: -Creon 120,000 units (5 caps) to be taken with meals and 34152 units (3 caps) to be taken with snack -MRI without contrast ordered - due in Dec - to surveil the pancreatic cyst Plan Follow-up after MRI Orders: Orders MR abdomen wo con 3 Months K86.2 - Cyst of pancreas Medications: Refilled [id number]-tdjqzeww-[id number] 24,000-76,000 -120,000 unit (Creon) 4-5 capsule with meals and 3 capsule with snack orally; administer with meals and/or snacks 30 days 570 caps 3RF Discontinued tamsulosin Discontinued Reason: Patient no longer taking Take 1 capsule by mouth at bedtime 90 caps 0RF Telehealth Telehealth Location of provider rendering services: practice address Location of patient: address on file Patient Identification confirmed using: Name, : Yes Telehealth method: video Patient verbally consented to treatment: Yes Patient verbally consented to billing insurance company: Yes Patient informed of any privacy concerns related to visit: Yes Minutes spent on Phone/Video with Pt.: 12 Coding Level of Care Code Tele Est Pt Level 4 (10554) Diagnoses Upper abdominal pain R10.10 Recurrent acute pancreatitis K85.90 Pancreatic cyst K86.2 Diarrhea R19.7 History of alcohol abuse F10.11
== END 2023-10-03 12:33 | disposition home or self-care (01) ==
LOC: HO.HGI 11:05
PROVIDERS: PCP Registered Nurse; Visit Provider Internal Medicine
DX: R10.10 Upper abdominal pain, unspecified (principal); K85.90 Acute pancreatitis without necrosis or infection, unspecified; K86.2 Cyst of pancreas; R19.7 Diarrhea, unspecified; F10.11 Alcohol abuse, in remission
CPT/HCPCS: 99214

== ENCOUNTER → 2023-10-03 11:05 | Outpatient (BNVA) | payer MEDICAID, SELFPAY | PROVIDERS: PCP Registered Nurse; Visit Provider Internal Medicine ==

== ENCOUNTER 2024-01-31 11:44 | Outpatient (AMB) | payer MEDICAID, SELFPAY ==
--- NOTE | 2024-01-31 11:44 | MHC.OFFVIS ---
Intake Intake Visit Reasons: f/u pancreatic cyst Intake Note: Derian presents as a video call for a follow up. CC: States that he is not having any concerns at this time. 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 12/09/22: History was obtained patient, who states that he had his 1st episode of acute pancreatitis in 2014, followed by 2nd episode 8 months later. At that time, this was attributed to heavy alcohol use. Was drinking 6-7 drinks every day x years. He has since then quit, and has not had recurrence of pancreatitis until just recently in August 2022. Was admitted to [facility] for almost [address] scan showing pancreatitis scanned in chart. Unclear etiology, thinks it was may be from eating too many eggs. Has not had alcohol for 8 years. Has gallbladder in Situ, but does not recall being told he had stones or sludge. Does not smoke tobacco, does smoke marijuana. 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 No family history of pancreatitis or pancreatic cancer. Currently, main complaint is postprandial abdominal pain and burning sensation with nausea, feeling of bloating and intermittent diarrhea. He states that his diarrhea is better since he started psyllium fiber, but continues to have postprandial abdominal discomfort with nausea. Describes abdominal discomfort as burning pain in the center of his abdomen that lasts at least a few hours. He is not on any PPI. Does have prior history of H pylori infection, and recalls getting antibiotics, but is not sure whether he had a repeat breath test. Does not take any NSAIDs. Currently not on any PPI. 01/04/23: Main complain of abdominal discomfort and bloating is unchanged. This is mostly postprandial as mentioned before. Was also recent testing and MRI discussed with the patient. Although, no signs of pancreatic atrophy or calcification noted on MRI, fecal fat is elevated and patient may have some degree of pancreatic insufficiency. In addition, he also reports rectal bleeding, which is specially worse in the past 2 days. Notices blood on wiping. No pain on passing bowel movements. Patient reports he has never had a colonoscopy done. Labs also show anemia. 02/02/23 EGD/colo: Impression:? Grade B esophagitis (biopsy) Normal stomach (biopsy) Duodenitis (biopsy) Normal colon mucosa (biopsy) Total of 3 polyps removed from the sigmoid colon and rectum as above. Internal hemorrhoids Path: A.? Duodenum, biopsy:? Duodenal mucosa with preserved villi and no specific change. B.? Stomach, random, biopsy:? Gastric antral mucosa with mild reactive changes and minimal chronic inactive gastritis, and gastric body mucosa with focal minimal inactive gastritis; negative for H pylori, intestinal metaplasia and dysplasia.? C.? Esophagus, lower, biopsy:? Squamocolumnar mucosa with hyperplastic changes and mild chronic inflammation; negative for intestinal metaplasia and dysplasia. D.? Colon, right, biopsy:? Colonic mucosa with lymphoid aggregates and no specific change; no evidence of microscopic colitis. E.? Colon, left, biopsy:? Colonic mucosa with lymphoid aggregates and no specific change; no evidence of microscopic colitis.? F.? Colon, sigmoid, polyps:? Hyperplastic polyps, two. G.? Colon, rectal polyp:? Hyperplastic polyp.? 02/03/23: Reports improvement in abdominal pain, nausea and vomiting with the Creon. Reports has to take 1 extra capsule than what is currently being prescribed for full effect. Diarrhea is better 2, thinks fiber supplementation help more than the creon in improving the diarrhea. It has also helped with the rectal bleeding and hemorrhoids. Was not able to use the hydrocortisone for rectal cream. Findings from EGD and colonoscopy reviewed with the patient. Path pending. Suspect rectal bleeding and anemia most likely secondary to the large internal hemorrhoids which did have stigmata of recent bleeding on the exam as well. 06/20/23: Returned from [place]. Reports good energy levels - biking 8 miles on weekends. Abd pain completely resolved with starting Creon but since increasing the dose recently, reports increased bloating and distention. Diarrhea is decreased in frequency as well. Rectal bleeding has resolved now that he is not going as frequently. Labs pending from January visit, and reminded to get those done today to review anemia as well as any nutrient deficiency due to chronic panc - if any. 10/03/23: Here as a televisit due to URI. No acute gastrointestinal complaints. No abd pain, N,V. No diarrhea as long as he takes creon and fiber regularly. Rectal bleeding has also resolved. Labs reviewed from last visit. No clinically significant nutritional deficiencies noted. 02/01/24: Televisit again today. Reports no acute GI concerns. Mentions was not able to get MRI scheduled as he was in [place] at that time for work. Plans to get it done soon. No refills needed. COUNT INCLUDES [facility] Medical History Pancreatitis Anemia Depression with anxiety BPH (benign prostatic hyperplasia) Substance abuse in remission Surgical History History of esophagogastroduodenoscopy (EGD) H/O skin graft History of reconstruction of anterior cruciate ligament tear Family History Maternal Grandmother Diabetes Hypertension Social History Alcohol intake: never Patient Tobacco Use Status: Former Tobacco user Review of Systems Const All systems reviewed & are unremarkable except as noted in HPI and below Physical Exam televisit NAD Speaking in full sentences No facial asymmetry Assessment & Plan Assessment & Plan (1) Recurrent acute pancreatitis: Code(s): K85.90 - Acute pancreatitis without necrosis or infection, unspecified (2) Pancreatic cyst: Code(s): K86.2 - Cyst of pancreas (3) History of alcohol abuse: Code(s): F10.11 - Alcohol abuse, in remission Plan: Overall doing well. No gastrointestinal sx. No change in management. Due for panc cyst surveillance and pt was reminded to book the MRI. Plan: -Creon 120,000 units (5 caps) to be taken with meals and 48845 units (3 caps) to be taken with snack -MRI without contrast ordered and pending as above -Pt knows to call the office when booked so we can schedule his follow up Plan Follow-up after MRI Telehealth Telehealth Location of provider rendering services: practice address Location of patient: address on file Patient Identification confirmed using: Name, : Yes Telehealth method: video Patient verbally consented to treatment: Yes Patient verbally consented to billing insurance company: Yes Patient informed of any privacy concerns related to visit: Yes Minutes spent on Phone/Video with Pt.: 12 Coding Level of Care Code Tele Est Pt Level 3 (92574) Diagnoses Recurrent acute pancreatitis K85.90 Pancreatic cyst K86.2 History of alcohol abuse F10.11
== END 2024-01-31 12:08 | disposition home or self-care (01) ==
LOC: HO.HGI 11:44
PROVIDERS: PCP Registered Nurse; Visit Provider Internal Medicine
DX: K85.90 Acute pancreatitis without necrosis or infection, unspecified (principal); K86.2 Cyst of pancreas; F10.11 Alcohol abuse, in remission
CPT/HCPCS: 99213

== ENCOUNTER → 2024-01-31 11:44 | Outpatient (BNVA) | payer MEDICAID, SELFPAY | PROVIDERS: PCP Registered Nurse; Visit Provider Internal Medicine ==